=== PATIENT | female | born 1945 | race Caucasian/White ===

== ENCOUNTER 2021-07-02 14:51 | Inpatient (IN) | payer MEDICARE, BC ==
[~2021-07-02] VITALS: Ht 152.4 cm; Wt 45.4 kg
--- NOTE | 2021-07-02 15:14 | NUR ---
MAXX Initial Discharge Note: Pt currently resides at [address] [place] [address] [place] [address]; ([phone]). Patient stated she lives alone. Pt would want to return back home upon dc. MAXX will work with the family, pt, and treatment team to help coordinate appropriate discharge.
--- NOTE | 2021-07-02 15:15 | NUR ---
Clinical Social Work Note: Pt placed on a 5150 hold for danger to others and GD. Pt was has been paranoid at home and knocking on neighbors doors. Pt currently resides at [address] [place] [address]; ([phone]). Patient stated she lives alone. Pt would want to return back home upon dc.
--- NOTE | 2021-07-02 15:15 | NUR ---
Treatment Plan: Pt refused to sign treatment plan. Pt paranoid and suspicious.
[2021-07-02] MEDS ORDERED: BLOOD SUGAR DIAGNOSTIC 1 EACH STRIP IN ONE (15:30)
[2021-07-02] MEDS ORDERED: ACETAMINOPHEN 325 MG TABLET PO PRN (15:30)
[2021-07-02] MEDS ORDERED: MAG HYDROX/AL HYDROX/SIMETH 30 ML UDC PO PRN (15:30)
[2021-07-02] MEDS ORDERED: MAGNESIUM HYDROXIDE 30 ML UDC PO PRN (15:30)
--- NOTE | 2021-07-02 15:41 | NUR ---
Zain GARCIA/RN PT WAS SEEN BY MARIA LUISA SPRINGER NP. ADMITTING ORDERS FROM DR URIBE RECEIVED AND CARRIED OUT. PT REFUSED TO LET NURSE TO COLLECT MRSA NARES SWAB AND REFUSED FULL BODY ASSESSMENT. ON FACE TO FACE ASSESSMENT NO SI OR HI REPORTED. PT CAME ON 515 HOLD DTO AND GD FROM [facility] , INITIALLY FROM HOME. Addendum: 07/02/21 at 1547 by EMMANUEL SMITH RN PT REFUSED TO SIGN ADMITTING FORMS/CONSENTS
--- NOTE | 2021-07-02 15:46 | NUR ---
Social Work Note/Substance Abuse Intervention: Patient was provided with a brief substance abuse intervention and referred to [facility] ([phone]), [facility] ([phone]), and [facility] ([phone]) for smoking cigarettes.
[2021-07-02] MEDS ORDERED: MIRT-90 PO (15:54)
[2021-07-02] MEDS ORDERED: RISP1TAB97 PO (15:54)
[2021-07-02] MEDS ORDERED: GALA8TAB8 PO (15:54)
[2021-07-02 16:00] VITALS: BP 130/74
--- NOTE | 2021-07-02 16:01 | NUR ---
GPS/RN PT DAUGHTER MADE AWARE OF ADMISSION. PT REFUSED TO TO BE WEIGHTED AND BE MEASURED FOR HEIGHT
[2021-07-02 16:02] VITALS: BP 130/74
--- NOTE | 2021-07-02 18:42 | NUR ---
GPS/RN PT DAUGHTER CONTACTED FOR VACCINATION STATUS. PT FULLY VACCINATED WITH 2 DOSES OF PFIZER AND BOOSTER ( MAY 2020). PNEUMO AND FLU VACCINE DONE MAY 2021
[2021-07-02 20:00] VITALS: BP 117/66
--- NOTE | 2021-07-02 20:09 | NUR ---
RN NOTES: PATIENT IN HER ROOM . AWAKE, ALERT, NO S/SX ACUTE DISTRESS NOTED. PATIENT REMAINS CONFUSED, FORGETFUL DISORGNIZED, PARANOID , WANDRING AROUND THE UNIT, UNCOOERTIVE, PT. ANXIOUS EASILY AGITATED, NEEDS FREQUENTLY REDIRECTIONS, SAFETY PRECAUTIONS IN PLACE, WILL CONTINUE TO MONITOR Q15 MIN ROUNDS FOR SAFETY AND BEHAVIOR.
[2021-07-02] MEDS: CEPHALEXIN MONOHYDRATE 500 MG CAPSULE PO SCH (20:55)
--- NOTE | 2021-07-02 20:56 | NUR ---
RN NOTES: MEDICATION REFUSAL PT. REFUSED 2100 SCHEDULE, KEFLEX 500 MG,PO , DESPITE EXPLAINING THE IMPORTANCE. PER PT. THAT,S NOT MY MEDICATIONS , I NO NEED IT ,WILL CONTINUE TO MONITOR.
--- NOTE | 2021-07-02 21:43 | NUR ---
RN NOTES : REFUSED SKIN ASSESSMENT PT. REFUSED SKIN ASSESSMENT AND PHOTOS TAKEN , PT. BEHAVIOR UNCOOPERTIVE , NONREDIRECTABLE, HYPERVERBAL , ENCOURAGED RISKS AND BENEFITS EXPLINED BUT PT. STRONGLY REFUSED ,PER PT. MY SKIN IS FINE , WILL CONTINUE TO MONITOR.
--- NOTE | 2021-07-03 06:19 | NUR ---
RN NOTES : PT. REFUSED MRSA NARES SWAB , PT. BEHAVIOR UNCOOPERTIVE , NONREDIRECTABLE , ENCOURAGED RISKS AND BENEFITS EXPLINED BUT PT. STRONGLY REFUSED .
[2021-07-03 07:55] LABS: CREATININE 0.8 mg/dL (0.6-1.3)
[2021-07-03 08:00] VITALS: BP 120/78
[2021-07-03 08:05] LABS: CHOLESTEROL 179 mg/dL (<200); HDL CHOLESTEROL 64 mg/dL (40-60); LDL 101 mg/dL (0-99); TRIGLYCERIDES 36 mg/dL (30-150)
[2021-07-03 08:12] LABS: ALANINE AMINOTRANSFERASE 24 U/L (12-78); ALBUMIN 3.5 g/dL (3.4-5.0); ALKALINE PHOSPHATASE 129 U/L (46-116); ASPARTATE AMINOTRANSFERASE 22 U/L (15-37); BILIRUBIN,TOTAL 0.7 mg/dL (0.2-1.0); CALCIUM, SERUM 9.2 mg/dL (8.5-10.1); CARBON DIOXIDE 28 mmol/L (21-32); CHLORIDE 106 mmol/L (98-107); CREATININE 0.7 mg/dL (0.6-1.3); GLUCOSE 97 mg/dL (74-106); POTASSIUM 3.3 mmol/L (3.5-5.1); SODIUM SERUM 143 mmol/L (136-145); TOTAL PROTEIN, SERUM 7.6 g/dL (6.4-8.2); UREA NITROGEN, BLOOD 13 mg/dL (7-18)
[2021-07-03] MEDS: CEPHALEXIN MONOHYDRATE 500 MG CAPSULE PO SCH ×3 (09:00→21:29)
--- NOTE | 2021-07-03 09:00 | NUR ---
GPS/RN PT REFUSED AM PO MEDS OFFERED X3
[2021-07-03] MEDS ORDERED: POTASSIUM CHLORIDE 20 MEQ TAB.PRT.SR PO SCH (11:00)
[2021-07-03 16:00] VITALS: BP 126/81
[2021-07-03] MEDS: GALANTAMINE HYDROBROMIDE 4 MG TABLET PO SCH (17:00)
[2021-07-03] MEDS ORDERED: risperiDONE 0.25 MG TABLET PO SCH (17:30)
[2021-07-03] MEDS ORDERED: RIVASTIGMINE TARTRATE 1.5 MG CAPSULE PO SCH (17:30)
[2021-07-03] MEDS: ENSURE ENLIVE 237 ML LIQUID (VANILLA) PO SCH (18:25)
--- NOTE | 2021-07-03 19:25 | NUR ---
GPS RN NOTE, RECEIVED PATIENT AWAKE AND IN BED, NO S/S OR COMPLAINTS OF PAIN AT THIS TIME. PATIENT IS DISPLAYING NO S/S OF APPARENT DISTRESS AT THIS TIME. PATIENT BREATHING IS UNLABORED WITH EQUAL RISE AND FALL OF THE CHEST. PATIENT IS ALERT AND ORIENTED X 1 ON ROOM AIR WITH A SPO2 94%. PATIENT IS SELECTIVELY REFUSING MEDICATIONS, CONFUSED, CALM, MAKES NEEDS KNOWN, AND COOPERATIVE. PATIENT DENIES SUICIDAL AND HOMICIDAL IDEATIONS AT THIS TIME. PATIENT ASSISTED WITH TURNING AND REPOSITIONING Q2HR AND PRN FOR COMFORT AND CIRCULATION. PATIENT HAS NO NEEDS AT THIS TIME. PATIENT EDUCATED ON THE USE OF THE CALL MORROW. PATIENT BED SIDE RAILS UP X 2 FOR SAFETY. PATIENT BED IS LOCKED, LOW, WITH BED ALARM ON. WILL CONTINUE TO MONITOR THIS PATIENT Q15 MINUTES WITH THE HELP OF STAFF TO MAINTAIN SAFETY.
[2021-07-03 20:08] VITALS: BP 114/68
[2021-07-03] MEDS: MIRTAZAPINE 15 MG TABLET PO SCH (21:27)
[2021-07-04] MEDS: RIVASTIGMINE TARTRATE 1.5 MG CAPSULE PO SCH ×2 (05:14→19:00)
[2021-07-04] MEDS: risperiDONE 0.25 MG TABLET PO SCH ×2 (05:14→19:00)
[2021-07-04 06:52] LABS: CALCIUM, SERUM 8.6 mg/dL (8.5-10.1); CARBON DIOXIDE 30 mmol/L (21-32); CHLORIDE 109 mmol/L (98-107); CREATININE 0.7 mg/dL (0.6-1.3); GLUCOSE 87 mg/dL (74-106); SODIUM SERUM 144 mmol/L (136-145); UREA NITROGEN, BLOOD 14 mg/dL (7-18)
[2021-07-04 08:00] VITALS: BP 100/59
--- NOTE | 2021-07-04 08:00 | NUR ---
GPS/RN RECEIVED PATIENT IN HER ROOM. AWAKE, ALERT, NO S/S ACUTE DISTRESS NOTED,CONFUSED, FORGETFUL DISORGANIZED, PARANOID, WANDERING AROUND THE UNIT,MEDICATED WITH AM MEDS, NEEDS CONSTANT REDIRECTIONS, WILL CONTINUE TO MONITOR Q15 MIN FOR SAFETY AND BEHAVIOR.
[2021-07-04] MEDS: ENSURE ENLIVE 237 ML LIQUID (VANILLA) PO SCH ×2 (08:15→17:20)
[2021-07-04] MEDS: GALANTAMINE HYDROBROMIDE 4 MG TABLET PO SCH ×2 (08:17→17:21)
[2021-07-04] MEDS: CEPHALEXIN MONOHYDRATE 500 MG CAPSULE PO SCH ×2 (08:18→21:54)
[2021-07-04 16:00] VITALS: BP 116/70
--- NOTE | 2021-07-04 19:35 | NUR ---
GPS RN OPENING NOTES: RECEIVED PATIENT IN BED, AWAKE, A/O X1, CALM, LOOSE ASSOCIATIONS, DISORGANIZED, DISORIENTED, CONFUSED, PARANOID, TALKING ABOUT SHOOTING, PER PATIENT "I JUST WANTED TO MAKE SURE HE DOES NOT SHOOT THEM". PATIENT REORIENTED TO PRESENT SITUATION BUT DRIFTED BACK TO TALKING ABOUT SHOOTINGS. NO S/S OF DISTRESS. RESPIRATION EVEN AND UNLABORED WITH EQUAL RISE AND FALL OF THE CHEST, ON ROOM AIR. OFFERED FLUID AND SNACKS TOLERATED. BED ON LOWEST POSITION AND LOCKED, SIDE RAILS UP X2 FOR SAFETY, CALL MORROW WITHIN REACH. WILL CONTINUE TO MONITOR Q15 FOR MOOD, SAFETY AND BEHAVIOR.
[2021-07-04 20:03] VITALS: BP 124/76
[2021-07-04] MEDS: MIRTAZAPINE 15 MG TABLET PO SCH (21:54)
[2021-07-05] MEDS: RIVASTIGMINE TARTRATE 1.5 MG CAPSULE PO SCH ×2 (06:28→17:04)
[2021-07-05] MEDS: risperiDONE 0.25 MG TABLET PO SCH ×2 (06:28→17:04)
--- NOTE | 2021-07-05 07:30 | NUR ---
PT RECEIVED RESTING COMFORTABLY IN BED. NO S/S OR C/O PAIN OR DISTRESS NOTED. SIDE RAILS UP X2. WILL CONTINUE PLAN OF CARE.
[2021-07-05 08:00] VITALS: BP 98/70
[2021-07-05] MEDS: CEPHALEXIN MONOHYDRATE 500 MG CAPSULE PO SCH ×2 (08:33→21:31)
[2021-07-05] MEDS: GALANTAMINE HYDROBROMIDE 4 MG TABLET PO SCH ×2 (08:33→17:04)
[2021-07-05] MEDS: ENSURE ENLIVE 237 ML LIQUID (VANILLA) PO SCH ×2 (08:39→17:04)
[2021-07-05 16:00] VITALS: BP 100/52
[2021-07-05 20:51] VITALS: BP 145/97
[2021-07-05] MEDS: MIRTAZAPINE 15 MG TABLET PO SCH (21:31)
[2021-07-05] MEDS ORDERED: risperiDONE 1 MG TABLET PO SCH (22:30)
[2021-07-05] MEDS: TEMAZEPAM 7.5 MG CAPSULE PO PRN (23:48)
--- NOTE | 2021-07-06 01:47 | NUR ---
RN GPS NOTE: MD URIBE HAS JUST PUT IN ORDER FOR BED TIME RISPERDAL AND DID NOT COMMUNICATE WITH THE NURSES REGARDING ORDERS AND HAVE NOT LEFT PAPERWORK TO FAX TO PHARMACY THAT NEEDED TO BE VERIFIED. CALLED PHARMACY TO CHECK IN IF ANY PAPERWORK WAS FAXED, WHICH PHARMACY STATED NONE WAS SENT. WILL SEND CONSENT AND ORDERS TO FAX TO PHARMACY FOR MEDICATION TO BE VERIFIED. UNABLE TO ADMINISTER FIRST DOSE OF BED TIME RISPERDAL.
[2021-07-06] MEDS: RIVASTIGMINE TARTRATE 1.5 MG CAPSULE PO SCH ×2 (06:28→17:14)
[2021-07-06 08:00] VITALS: BP 110/67
[2021-07-06] MEDS: ENSURE ENLIVE 237 ML LIQUID (VANILLA) PO SCH ×2 (08:28→16:25)
[2021-07-06] MEDS: risperiDONE 1 MG TABLET PO SCH ×2 (08:28→21:01)
[2021-07-06] MEDS: GALANTAMINE HYDROBROMIDE 4 MG TABLET PO SCH ×2 (08:28→16:24)
[2021-07-06] MEDS: CEPHALEXIN MONOHYDRATE 500 MG CAPSULE PO SCH ×2 (08:28→21:01)
--- NOTE | 2021-07-06 09:00 | NUR ---
RN NOTE-PATIENT IN HER ROOM. AWAKE, ALERT, NO S/S ACUTE DISTRESS NOTED,CONFUSED, FORGETFUL DISORGANIZED, WILL CONTINUE TO MONITOR Q15 MIN FOR SAFETY AND BEHAVIOR.
[2021-07-06 15:10] VITALS: BP 106/66
--- NOTE | 2021-07-06 19:15 | NUR ---
GPS RN NOTES PATIENT IN BED RESTING COMFORTABLY. ALERT AND ORIENTED X2, NO S/SX OF ACUTE DISTRESS NOTED. PATIENT REMAINS ANXIOUS, PARANOID, DELUSIONAL, DISHEVELED, UNKEMPT. NO VERBALIZATION OF THOUGHTS AND FEELINGS. SAFETY PRECAUTIONS IN PLACE. WILL CONTINUE TO MONITOR Q15MIN ROUNDS FOR SAFETY AND BEHAVIOR.
[2021-07-06 19:39] VITALS: BP 110/69
[2021-07-06] MEDS: MIRTAZAPINE 15 MG TABLET PO SCH (21:01)
[2021-07-06] MEDS: TEMAZEPAM 7.5 MG CAPSULE PO PRN (23:11)
[2021-07-07] MEDS: RIVASTIGMINE TARTRATE 1.5 MG CAPSULE PO SCH ×2 (05:39→17:21)
[2021-07-07 08:00] VITALS: BP 100/65
[2021-07-07] MEDS: GALANTAMINE HYDROBROMIDE 4 MG TABLET PO SCH ×2 (08:19→16:42)
[2021-07-07] MEDS: risperiDONE 1 MG TABLET PO SCH ×2 (08:21→21:00)
[2021-07-07] MEDS: CEPHALEXIN MONOHYDRATE 500 MG CAPSULE PO SCH (08:21)
[2021-07-07] MEDS: ENSURE ENLIVE 237 ML LIQUID (VANILLA) PO SCH ×2 (08:22→16:42)
--- NOTE | 2021-07-07 09:27 | NUR ---
Court Hearing: MAXX notified pt's daughter Emre ([phone]) of 5250 hearing today. MAXX left a voicemail. Addendum: 07/07/21 at [address] Notification
--- NOTE | 2021-07-07 09:30 | NUR ---
SNF Referral: MAXX sent clinicals to [facility] to [facility] admin for possible placement. SW sent H & P, progress notes, and medication list.
--- NOTE | 2021-07-07 10:58 | NUR ---
Court Hearing: Patient's court hearing for [id number] was today and it was upheld for GD.
[2021-07-07 16:00] VITALS: BP 90/59
[2021-07-07 20:00] VITALS: BP 119/73
[2021-07-07] MEDS: TEMAZEPAM 7.5 MG CAPSULE PO PRN (21:00)
[2021-07-07] MEDS: MIRTAZAPINE 15 MG TABLET PO SCH (21:01)
[2021-07-07] MEDS: LORAZEPAM 0.5 MG TABLET PO PRN (21:01)
[2021-07-08] MEDS: RIVASTIGMINE TARTRATE 1.5 MG CAPSULE PO SCH ×2 (06:12→18:13)
[2021-07-08 08:00] VITALS: BP 107/66
[2021-07-08] MEDS: GALANTAMINE HYDROBROMIDE 4 MG TABLET PO SCH ×2 (08:40→16:40)
[2021-07-08] MEDS: ENSURE ENLIVE 237 ML LIQUID (VANILLA) PO SCH ×2 (08:40→16:41)
[2021-07-08] MEDS: risperiDONE 1 MG TABLET PO SCH ×2 (08:41→20:40)
--- NOTE | 2021-07-08 09:21 | NUR ---
MAXX Family Contact: MAXX spoke with patient's daughter Emre ([phone]) who stated that she would want this sba underwriter to send clinicals to [facility].
--- NOTE | 2021-07-08 09:22 | NUR ---
SNF Referral: MAXX sent clinicals to Ta ramos from [facility] ([phone]) for placement. SW sent H & P, progress notes, and medication list.
--- NOTE | 2021-07-08 13:23 | NUR ---
SNF Referral: MAXX spoke with Ta ramos from [facility] ([phone]) who stated pt is accepted. Addendum: 07/08/21 at 1324 by MAXX DAVILA SNF Contact
--- NOTE | 2021-07-08 13:24 | NUR ---
MAXX Family Contact: Per pt's daughter's request for [facility]. MAXX spoke with patient's daughter Emre ([phone]) and notified that pt is accepted at [facility].
[2021-07-08 16:00] VITALS: BP 100/64
--- NOTE | 2021-07-08 17:08 | NUR ---
RN-NOTES PATIENT IN THE DAY ROOM UP IN THE [place] CHAIR, AWAKE,ALERT X1,GUARDED CALM,NO ACUTE DISTRESS NOTED.NEEDS MINIMAL ASSIST WITH ADL'S. COMPLIANT WITH MEDICATIONS. GOOD SILVESTRE CARE RENDERED. ALL NEEDS ATTENDED AND ANTICIPATED. WILL CONT. MONITORING FOR SAFETY AND BEHAVIOR.WILL ENDORSE TO INCOMING SHIFT FOR CONTINUITY OF CARE.
--- NOTE | 2021-07-08 19:58 | NUR ---
RN NOTES PATIENT SITTING IN CHAIR. ALERT AND ORIENTED X 1,2, NO S/SX OF ACUTE DISTRESS NOTED. PATIENT REMAINS, CONFUSED , DISORGNIZED, ANXIOUS, PARANOID, DELUSIONAL, DISHEVELED,WANDRING AROUND THE UNIT,NEEDS FREQUENTLY REDIRECTIONS, NO VERBALIZATION OF THOUGHTS AND FEELINGS. SAFETY PRECAUTIONS IN PLACE. WILL CONTINUE TO MONITOR Q15MIN ROUNDS FOR SAFETY AND BEHAVIOR.
[2021-07-08 20:00] VITALS: BP 103/67
[2021-07-08] MEDS: MIRTAZAPINE 15 MG TABLET PO SCH (21:24)
[2021-07-09] MEDS: RIVASTIGMINE TARTRATE 1.5 MG CAPSULE PO SCH ×2 (06:09→17:10)
[2021-07-09] MEDS: ENSURE ENLIVE 237 ML LIQUID (VANILLA) PO SCH ×2 (08:14→17:10)
[2021-07-09] MEDS: risperiDONE 1 MG TABLET PO SCH ×2 (08:31→20:04)
[2021-07-09] MEDS: GALANTAMINE HYDROBROMIDE 4 MG TABLET PO SCH ×2 (08:31→17:10)
[2021-07-09 16:00] VITALS: BP 144/62
--- NOTE | 2021-07-09 17:49 | NUR ---
RN-NOTES PATIENT IN THE DAY ROOM UP IN THE [place] CHAIR, AWAKE,ALERT X1,GUARDED CALM,NO ACUTE DISTRESS NOTED.NEEDS MAXIMUM ASSIST WITH ADL'S. COMPLIANT WITH MEDICATIONS. GOOD SILVESTRE CARE RENDERED. ALL NEEDS ATTENDED AND ANTICIPATED. WILL CONT. MONITORING FOR SAFETY AND BEHAVIOR.WILL ENDORSE TO INCOMING SHIFT FOR CONTINUITY OF CARE.
--- NOTE | 2021-07-09 19:38 | NUR ---
RN NOTES: PATIENT IN TV ROOM . AWAKE, ALERT, NO S/SX ACUTE DISTRESS NOTED. PATIENT REMAINS CONFUSED, FORGETFUL DISORGNIZED, PARANOID , WANDRING AROUND THE UNIT, UNCOOERTIVE, PT. ANXIOUS EASILY AGITATED, NEEDS FREQUENTLY REDIRECTIONS, SAFETY PRECAUTIONS IN PLACE, WILL CONTINUE TO MONITOR Q15 MIN ROUNDS FOR SAFETY AND BEHAVIOR.
[2021-07-09 20:10] VITALS: BP 105/62
[2021-07-09] MEDS: MIRTAZAPINE 15 MG TABLET PO SCH (21:02)
[2021-07-10] MEDS: RIVASTIGMINE TARTRATE 1.5 MG CAPSULE PO SCH ×2 (06:12→17:10)
[2021-07-10 08:00] VITALS: BP 115/64
[2021-07-10] MEDS: ENSURE ENLIVE 237 ML LIQUID (VANILLA) PO SCH ×2 (08:12→16:26)
[2021-07-10] MEDS: risperiDONE 1 MG TABLET PO SCH ×2 (09:53→20:30)
[2021-07-10] MEDS: GALANTAMINE HYDROBROMIDE 4 MG TABLET PO SCH ×2 (09:53→16:27)
[2021-07-10 16:00] VITALS: BP 118/78
--- NOTE | 2021-07-10 20:00 | NUR ---
RN NOTES: PATIENT IN THE HALLWAY UP IN [facility] . AWAKE, ALERT, NO S/SX ACUTE DISTRESS NOTED. PATIENT REMAINS CONFUSED, FORGETFUL DISORGNIZED, PARANOID , UNCOOERTIVE, PT. REFUSED GO BACK TO BED , PT. ANXIOUS EASILY AGITATED, NEEDS FREQUENTLY REDIRECTIONS, SAFETY PRECAUTIONS IN PLACE, WILL CONTINUE TO MONITOR Q15 MIN ROUNDS FOR SAFETY AND BEHAVIOR.
[2021-07-10 20:10] VITALS: BP 105/66
[2021-07-10] MEDS: MIRTAZAPINE 15 MG TABLET PO SCH (21:11)
[2021-07-11] MEDS: RIVASTIGMINE TARTRATE 1.5 MG CAPSULE PO SCH ×2 (06:22→16:54)
[2021-07-11 08:00] VITALS: BP 108/63
--- NOTE | 2021-07-11 08:00 | NUR ---
GPS/RN RECEIVED PATIENT IN HER ROOM. AWAKE, ALERT, NO S/S ACUTE DISTRESS NOTED, CONFUSED, FORGETFUL DISORGANIZED, PARANOID, MEDICATED WITH AM MEDS, NEEDS CONSTANT REDIRECTIONS, WILL CONTINUE TO MONITOR Q15 MIN FOR SAFETY AND BEHAVIOR.
[2021-07-11] MEDS: ENSURE ENLIVE 237 ML LIQUID (VANILLA) PO SCH ×2 (08:42→16:53)
[2021-07-11] MEDS: GALANTAMINE HYDROBROMIDE 4 MG TABLET PO SCH ×2 (08:43→16:54)
[2021-07-11] MEDS: risperiDONE 1 MG TABLET PO SCH ×2 (08:43→21:22)
[2021-07-11 16:00] VITALS: BP 105/70
[2021-07-11 19:46] VITALS: BP 102/62
[2021-07-11] MEDS: LORAZEPAM 0.5 MG TABLET PO PRN (21:21)
[2021-07-11] MEDS: MIRTAZAPINE 15 MG TABLET PO SCH (21:21)
--- NOTE | 2021-07-12 04:30 | NUR ---
RN Note Pt refused skin assessments, including taking pictures of skin.
[2021-07-12] MEDS: RIVASTIGMINE TARTRATE 1.5 MG CAPSULE PO SCH ×4 (06:00→17:13)
--- NOTE | 2021-07-12 06:53 | NUR ---
RN Note Pt refused 0600 med Rivastigmine 1.5 mg.
[2021-07-12 08:00] VITALS: BP 110/63
[2021-07-12] MEDS: GALANTAMINE HYDROBROMIDE 4 MG TABLET PO SCH ×2 (09:07→17:14)
[2021-07-12] MEDS: risperiDONE 1 MG TABLET PO SCH ×2 (09:07→21:38)
[2021-07-12] MEDS: ENSURE ENLIVE 237 ML LIQUID (VANILLA) PO SCH ×2 (09:13→17:14)
--- NOTE | 2021-07-12 15:21 | NUR ---
Individual Counseling: SW met with pt. to facilitate individual counseling. However, pt. is confused and disorganized. Pt. is not appropriate for therapeutic milieu at this time.
[2021-07-12 16:00] VITALS: BP 102/66
[2021-07-12 19:36] VITALS: BP 106/77
--- NOTE | 2021-07-12 19:40 | NUR ---
GPS RN OPENING NOTES: RECEIVED PATIENT SITTING IN CHAVA CHAIR FOR SAFETY, AWAKE, A/O X1, CALM, LOOSE ASSOCIATIONS, DISORGANIZED, DISORIENTED, CONFUSED, PARANOID, TALKING TO SELF, GIVING INAPPROPRIATE ANSWERS TO QUESTIONS. PATIENT REORIENTED TO PRESENT SITUATION. NO S/S OF DISTRESS. RESPIRATION EVEN AND UNLABORED WITH EQUAL RISE AND FALL OF THE CHEST, ON ROOM AIR. OFFERED FLUID AND SNACKS TOLERATED. WILL CONTINUE TO MONITOR Q15 FOR MOOD, SAFETY AND BEHAVIOR.
[2021-07-12] MEDS: MIRTAZAPINE 15 MG TABLET PO SCH (21:38)
--- NOTE | 2021-07-12 21:44 | NUR ---
GPS RN NOTES: RISPERDAL 0.5MG WASTED PER PARTIAL DOSE ORDER.
[2021-07-13] MEDS: TEMAZEPAM 7.5 MG CAPSULE PO PRN ×2 (00:20→23:35)
--- NOTE | 2021-07-13 00:22 | NUR ---
GPS RN NOTES: RESTORIL 7.5MG/2CAPS GIVEN PO D/T INSOMNIA AT 0020. WILL CONTINUE TO MONITOR.
[2021-07-13] MEDS: RIVASTIGMINE TARTRATE 1.5 MG CAPSULE PO SCH ×2 (06:00→17:53)
--- NOTE | 2021-07-13 06:20 | NUR ---
GPS RN NOTES: PATIENT REFUSED 0600 EXELON 1.5MG 1CAP ORDERED. WILL CONTINUE TO MONITOR AND ENDORSE TO AM SHIFT.
[2021-07-13 08:00] VITALS: BP 100/59
[2021-07-13] MEDS: ENSURE ENLIVE 237 ML LIQUID (VANILLA) PO SCH ×2 (08:16→16:22)
[2021-07-13] MEDS: risperiDONE 1 MG TABLET PO SCH ×2 (08:17→21:27)
[2021-07-13] MEDS: GALANTAMINE HYDROBROMIDE 4 MG TABLET PO SCH ×2 (08:18→16:20)
--- NOTE | 2021-07-13 09:19 | NUR ---
RN-CO: RECEIVED PATIENT IN THE Her ROOM SITTING AWAKE, ALERT, NO S/S ACUTE DISTRESS NOTED,CONFUSED, FORGETFUL DISORGANIZED ,MEDICATED WITH AM MEDS, NEEDS CONSTANT REASSURANCE, WILL CONTINUE TO MONITOR Q15 MIN FOR SAFETY AND BEHAVIOR.
[2021-07-13 16:00] VITALS: BP 100/69
[2021-07-13 20:18] VITALS: BP 112/67
[2021-07-13] MEDS: MIRTAZAPINE 15 MG TABLET PO SCH (21:25)
[2021-07-14 08:00] VITALS: BP 145/74
--- NOTE | 2021-07-14 08:10 | NUR ---
SW Discharge Note: Patient will be discharged to a [facility] located at [address] [place] [address]; [address]; ([phone]). Please arrange ambulance transportation. Tool Tender spoke with Fara ([phone]), Railroad Commissioner who stated patient will be accepted at facility today. Patients daughter Emre ([phone]) is aware and agreeable. Patient is alert and oriented x2. Patient denies any suicidal or homicidal ideations. Patient is aware and agreeable with discharge plans. Patient will continue to follow-up with her (Psychiatrist) Dr. Rogers located at [address] [facility] [address], [place], [place] [address]; ([phone]) and (Sealing And Canceling Machine Operator) Dr. Tuttle located at [address] [place] [address]; [address]; ([phone]). Patient presents with euthymic mood and congruent affect.
[2021-07-14] MEDS: RIVASTIGMINE TARTRATE 1.5 MG CAPSULE PO SCH (08:15)
[2021-07-14] MEDS: ENSURE ENLIVE 237 ML LIQUID (VANILLA) PO SCH (08:15)
[2021-07-14] MEDS: risperiDONE 1 MG TABLET PO SCH (10:25)
[2021-07-14] MEDS: GALANTAMINE HYDROBROMIDE 4 MG TABLET PO SCH (10:25)
--- NOTE | 2021-07-14 13:18 | NUR ---
given mom,pt. had no bm for several days. Addendum: 07/14/21 at 1343 by LAZ PETER RN above note incorrect,pt.took few sips of med.refused the rest.
--- NOTE | 2021-07-14 14:35 | NUR ---
refused discharge photos.
--- NOTE | 2021-07-14 14:49 | NUR ---
MOSTLY IN DINING RM. TODAY CONFUSED.WAS ATTEMPTING TO GET OOB.
--- NOTE | 2021-07-14 14:59 | NUR ---
DENIES SUICIDAL AND HOMICIDAL IDEATIONS.PT. AWARE AND AGREEABLE.
--- NOTE | 2021-07-14 15:30 | NUR ---
REPORT CALLED TO BECK AT FACILITY.MADE AWARE OF NEEDED CT SCAN.TAKEN VIA AMBULANCE TO FACILITY.
== END 2021-07-14 16:15 | DRG 885 ==
LOC: GPS 14:51
PROVIDERS: ADMIT Psychiatry & Neurology Psychiatry; ATTEND Nurse Practitioner Acute Care
DX: F29 Unspecified psychosis not due to a substance or known physiological condition (principal); F03.91 Unspecified dementia, unspecified severity, with behavioral disturbance; N39.0 Urinary tract infection, site not specified; E87.6 Hypokalemia; I10 Essential (primary) hypertension; Z73.6 Limitation of activities due to disability; F32.A Depression, unspecified; Z20.822 Contact with and (suspected) exposure to COVID-19; R22.1 Localized swelling, mass and lump, neck; F41.9 Anxiety disorder, unspecified
CPT/HCPCS: 36415; 70450-TC; 80048-TC; 80053-TC; 80061-TC; 82565-TC; 97116-TC; 97530-TC